=== PATIENT | female | born 2000 | race Caucasian/White ===

== ENCOUNTER 2024-01-05 15:57 | Emergency (ER) | payer OTHER ==
[2024-01-05 16:09] VITALS: BP 105/64; PULSE 80; RESP 18; TEMP 98.1; BMI 25.9
== END 2024-01-05 18:07 | disposition home or self-care (01) ==
LOC: JERFT 15:57
DX: M25.532 Pain in left wrist (principal); S63.92XA Sprain of unspecified part of left wrist and hand, initial encounter; X50.9XXA Other and unspecified overexertion or strenuous movements or postures, initial encounter
CPT/HCPCS: 73110-TC-LT-FY; 99283-25